=== PATIENT | female | born 1975 | race Caucasian/White ===

== ENCOUNTER → 2017-10-11 | Outpatient (CLI) | payer OTHER | END | disposition home or self-care (01) | LOC: CFH 12:36 | PROVIDERS: ATTEND Obstetrics & Gynecology | DX: N60.01 Solitary cyst of right breast (principal); N64.52 Nipple discharge; N64.4 Mastodynia; N63.13 Unspecified lump in the right breast, lower outer quadrant | CPT/HCPCS: 76642; 77066 ==

== ENCOUNTER → 2017-12-02 | Outpatient (CLI) | payer OTHER ==
[~2017-12-02] MED LIST: GADOBUTROL 10 MMOL/10 ML VIAL ONE
== END | disposition home or self-care (01) ==
LOC: CFH 15:11
PROVIDERS: ATTEND Obstetrics & Gynecology
DX: N63.13 Unspecified lump in the right breast, lower outer quadrant (principal); N64.52 Nipple discharge
CPT/HCPCS: A9585; C8908